=== PATIENT | female | born 1990 | race African-American/Black ===

== ENCOUNTER 2023-06-16 02:11 | Emergency (ER) | payer BC ==
[~2023-06-16] VITALS: Ht 170.2 cm; Wt 86.0 kg
[2023-06-16 02:14] VITALS: O2SAT 100
[2023-06-16 02:40] VITALS: BP 132/54; PULSE 107; RESP 15; TEMP 99.4
[2023-06-16] MEDS ORDERED: AMOX-494 MT (02:40)
== END 2023-06-16 03:35 | disposition home or self-care (01) ==
LOC: ER 03:02
DX: J02.9 Acute pharyngitis, unspecified (principal); Z20.822 Contact with and (suspected) exposure to COVID-19
CPT/HCPCS: 87070; 87426; 87430; 87804; 99283

== ENCOUNTER 2023-10-12 01:29 | Emergency (ER) | payer BC ==
[~2023-10-12] VITALS: Ht 170.2 cm; Wt 109.0 kg
[~2023-10-12 01:29] MED LIST: AMOX-494 MT
[2023-10-12 01:57] VITALS: O2SAT 99
[2023-10-12 02:48] LABS: CHLORIDE 96 mEq/L (98-107); POTASSIUM 2.9 mEq/L (3.5-5.1); SODIUM 130 mEq/L (136-145)
[2023-10-12 02:49] LABS: CALCIUM 8.7 mg/dL (8.7-10.4); CARBON DIOXIDE 25 mEq/L (21-32)
[2023-10-12 02:54] LABS: CREATININE 2.1 mg/dL (0.6-1.0); GLUCOSE 123 mg/dL (70-105)
[2023-10-12 02:55] LABS: UREA NITROGEN BLOOD 19 mg/dL (9-23)
[2023-10-12 02:56] LABS: ALANINE AMINOTRANSFERASE 39 IU/L (10-49); ALBUMIN 3.8 g/dL (3.2-4.8); ASPARTATE AMINOTRANSFERASE 39 IU/L (<34); BILIRUBIN DIRECT 0.8 mg/dL (<=3.0)
[2023-10-12 02:57] LABS: BILIRUBIN TOTAL 1.4 mg/dL (0.1-1.0); PROTEIN TOTAL 7.9 g/dL (6.0-8.3)
[2023-10-12 03:02] LABS: HEMATOCRIT. 33.3 % (36.0-48.0); HEMOGLOBIN. 11.1 g/dL (12.0-16.0); MEAN CORPUSCULAR HEMOGLOBIN 22.9 pg (28.0-32.0); MEAN CORPUSCULAR HGB CONC 33.4 g/dL (31.0-37.0); MEAN CORPUSCULAR VOLUME 68.5 fL (81.0-99.0); PLATELET 285 x1000/uL (130-400); RED BLOOD CELL COUNT 4.86 mill/uL (4.2-5.4); RED CELL DISTRIBUTION WIDTH 18.2 % (11.6-14.6); WHITE BLOOD COUNT 20.7 x1000/uL (4.5-11.0)
[2023-10-12 03:09] LABS: INR 1.1; PROTHROMBIN TIME 11.7 sec (9.6-11.0)
[2023-10-12 03:18] LABS: HCG SCREEN NEGATIVE
[2023-10-12] MEDS: SODIUM CHLORIDE 0.9% 1,000 ML IV ONE ×2 (03:18→04:54)
[2023-10-12] MEDS: ONDANSETRON HCL 4MG/2ML INJ IV STA (03:18)
[2023-10-12 03:23] LABS: DIFFERENTIAL COMMENT 1
[2023-10-12] MEDS: ACETAMINOPHEN 1000MG/100ML 100 ML IV ONE (03:54)
[2023-10-12] MEDS: POTASSIUM CHLORIDE 20MEQ/PACKET PO NR (04:23)
[2023-10-12 05:00] VITALS: BP 102/66; PULSE 93; RESP 24; TEMP 98.1
[2023-10-12 05:37] LABS: POTASSIUM 3.6 mEq/L (3.5-5.1)
[2023-10-12 05:38] LABS: CALCIUM 7.8 mg/dL (8.7-10.4)
[2023-10-12 05:43] LABS: CREATININE 1.9 mg/dL (0.6-1.0)
[2023-10-12] MEDS ORDERED: POTA-204 MT (05:52)
[2023-10-12 06:01] LABS: CLARITY URINE TURBID (CLEAR); COLOR URINE YELLOW (YELLOW); PH URINE 5.5 (4.5-8.0); SPECIFIC GRAVITY URINE 1.007 (1.005-1.030)
[2023-10-12 06:02] LABS: GLUCOSE URINE NEGATIVE (NEGATIVE); KETONES URINE NEGATIVE (NEGATIVE); NITRITE URINE POSITIVE (NEGATIVE); OCCULT BLOOD URINE 2+ (NEGATIVE); PROTEIN URINE 2+ (NEGATIVE)
[2023-10-12 06:03] LABS: LEUKOCYTE ESTERASE URINE 3+ (NEGATIVE)
[2023-10-12 06:23] LABS: SQUAMOUS EPITHELIAL CELL URINE FEW /lpf (RARE/1+); WBC URINE TNTC /hpf (0-2)
[2023-10-12 06:25] LABS: BACTERIA URINE 3+
[2023-10-12 10:52] LABS: ANISOCYTOSIS 2+; MICROCYTOSIS 3+; PLATELET ESTIMATE NORMAL
== END 2023-10-12 06:10 | disposition home or self-care (01) ==
LOC: ER 01:31
DX: E86.0 Dehydration (principal); N28.9 Disorder of kidney and ureter, unspecified; E87.6 Hypokalemia
CPT/HCPCS: 80076; 80048; 81003; 84703; 83605; 83690; 83735; 84100; 85025; 85610; 87086; 87186; 87077; 36415; 96361; 96365; 99284; J2405; J7030; Z7610 ×2; J0131

== ENCOUNTER → 2023-12-10 | Outpatient (CLI) | payer BC ==
[~2023-12-10] MED LIST changes: +POTA-204 MT
[2023-12-10 07:21] LABS: BASOPHILS % 0.4 % (0.0-2.0); EOSINOPHILS % 1.8 % (0.0-5.0); HEMATOCRIT. 31.4 % (36.0-48.0); HEMOGLOBIN. 10.3 g/dL (12.0-16.0); LYMPHOCYTES % 22.8 % (20.0-50.0); MEAN CORPUSCULAR HEMOGLOBIN 22.9 pg (28.0-32.0); MEAN CORPUSCULAR HGB CONC 32.7 g/dL (31.0-37.0); MEAN PLATELET VOLUME 7.7 fl (7.4-10.4); MONOCYTES % 7.8 % (2.0-8.0); NEUTROPHILS % 67.2 % (40.0-76.0); PLATELET 409 x1000/uL (130-400); RED BLOOD CELL COUNT 4.49 mill/uL (4.2-5.4); RED CELL DISTRIBUTION WIDTH 20.8 % (11.6-14.6); WHITE BLOOD COUNT 9.7 x1000/uL (4.5-11.0)
[2023-12-10 07:32] LABS: CHLORIDE 102 mEq/L (98-107); POTASSIUM 3.9 mEq/L (3.5-5.1); SODIUM 134 mEq/L (136-145)
[2023-12-10 07:33] LABS: CARBON DIOXIDE 27 mEq/L (21-32)
[2023-12-10 07:34] LABS: CALCIUM 9.4 mg/dL (8.7-10.4)
[2023-12-10 07:39] LABS: GLUCOSE 92 mg/dL (70-105); TRIGLYCERIDE 60 mg/dL (0-150); UREA NITROGEN BLOOD 9 mg/dL (9-23)
[2023-12-10 07:40] LABS: ALANINE AMINOTRANSFERASE 9 IU/L (10-49); ALBUMIN 4.2 g/dL (3.2-4.8); LDL CHOLESTEROL 85 mg/dL (5-100)
[2023-12-10 07:41] LABS: ASPARTATE AMINOTRANSFERASE 13 IU/L (<34); BILIRUBIN TOTAL 0.5 mg/dL (0.1-1.0); CHOLESTEROL 133 mg/dL (<200); HDL CHOLESTEROL 42 mg/dL (>65); PROTEIN TOTAL 8.2 g/dL (6.0-8.3)
[2023-12-10 07:43] LABS: DIFFERENTIAL COMMENT 1
[2023-12-10 07:45] LABS: ADD RBC MORPHOLOGY YES
[2023-12-10 16:20] LABS: ANISOCYTOSIS 2+; MICROCYTOSIS 2+; PLATELET ESTIMATE SLIGHTLY INCREASED
== END | disposition home or self-care (01) ==
LOC: LAB 05:54
PROVIDERS: ATTEND Internal Medicine Critical Care Medicine
DX: Z00.00 Encounter for general adult medical examination without abnormal findings (principal)
CPT/HCPCS: 36415; 80053; 80061; 85025; 86038; 86430